=== PATIENT | female | born 1985 | race Caucasian/White ===

== ENCOUNTER → 2016-09-14 | Outpatient (CLI) | payer BC ==
[~2016-09-14] MED LIST: AMOX1TAB12 PO; FLUC150T PO; PRED20TA PO
[2016-09-14 10:50] VITALS: BP 124/81
--- NOTE | 2016-09-14 10:50 | Urgent Care T Sheet Gen (E) ---
Intake General Temperature (Fahrenheit): 98.3 Pulse: 92 Blood Pressure Systolic: 124 Blood Pressure Diastolic: 81 Respirations: 20 SPO2: 99 Description of Symptoms Patient presents with illness since Monday. notes cough, congestion, SOB and malaise. Low grade fever on Monday. Been taking Theraflu and NyQuil. History of Present Illness Home Meds Active Scripts Amoxicillin/Clavulanate Potassium (Augmentin 875mg/125mg)1 Each Tablet1 Tab PO BID #20 TAB Ref 0 Prov:LONNIE HAYS 04/05/16 Respiratory Constitutional Symptoms: No Fever, Malaise EENTM: Nose Congestion Respiratory: Cough Short of breath Cardiovascular: No symptoms reported Gastrointestinal/Abdominal: No symptoms reported All Other Systems Reviewed Remaining Systems: All other systems reviewed with negative findings Past Ysbfeex-Phyhwc-Mrokts Hx Patient's Social History Recent foreign travel: No Respiratory Respiratory History: None Cardiovascular Cardiovascular History: None Reproductive System Sexually Transmitted Diseases: No Gastrointestinal GI/Endocrine History: None Diabetes Diabetes: No HEENT Impaired Vision: None Hearing Impaired: None Psychosocial Behavior Disorders: Anxiety Physical Exam Physical Exam General Appearance: WD/WN No apparent distress Eyes, Ears, Nose, Throat Ex: TMs normal Pharynx normal Other (clear, thick nasal congestion) Neck Exam: SuppleNo Lymphadenopathy Respiratory Exam: Rhonchi (worse on the R side) Wheezes (worse on the R side) Cardiovascular Exam: Regular rate, rhythm Departure Urgent Care Impression Impression: Primary Impression: Bronchitis Departure Disposition: 01 HOME OR SELF-CARE Condition: Stable Referrals: VIOLETA TORRES MD (PCP) Additional Instructions: I have started the patient on Augmentin and Prednisone for treatment of her bronchiolitis. Patient requested some Diflucan as antibiotics tend to give her yeast infection. Rest. Fluids DC OTC meds Return as needed Patient understands DC instructions. All questions were answered. Scripts Prednisone 20 Mg [id number] Mg PO DAILY #6 TAB Prov:LONNIE HAYS 09/14/16 Fluconazole (Diflucan)150 Mg [id number] Mg PO ONCE #2 TAB Take 1 tab po at the start of the antibiotic then take the second tab at the end of the antibiotic. Prov:LONNIE HAYS 09/14/16 Amoxicillin/Clavulanate Potassium (Augmentin 875mg/125mg)1 Each Tablet1 Tab PO BID #14 TAB Ref 0 Prov:LONNIE HAYS 09/14/16 End of report . LONNIE HAYS Sep 14, 2016 10:50
== END ==
LOC: MHUC 10:19
PROVIDERS: ATTEND Physician Assistant
DX: J40 Bronchitis, not specified as acute or chronic (principal)
CPT/HCPCS: 99213